=== PATIENT | female | born 1940 | race Caucasian/White ===

== ENCOUNTER 2017-02-28 15:30 | Inpatient (IN) | payer OTHER ==
[~2017-02-28] VITALS: Ht 154.9 cm; Wt 80.3 kg
[2017-02-28 17:17] LABS: Hematocrit 32.1 % (36.0-46.0); Hemoglobin 11.1 g/dL (12.2-16.2); Mean Corpuscular Hemoglobin 30.8 pg (28.0-32.0); Mean Corpuscular Hgb Conc. 34.5 g/dL (32.0-36.0); Mean Corpuscular Volume 89.2 fL (80.0-100.0); Platelet Count (auto) 379 10^3/uL (140-450); Red Cell Distribution Width 12.7 % (11.8-14.3)
[2017-02-28 17:23] LABS: Albumin 3.3 g/dL (3.4-5.0); Anion Gap 11 (5-15); Blood Urea Nitrogen 13 mg/dL (7-18); Calcium 8.2 mg/dL (8.5-10.1); Carbon Dioxide 26 mmol/L (21-32); Chloride 71 mmol/L (98-107); Glucose 144 mg/dL (74-106); Magnesium 1.8 mg/dL (1.6-2.6); Potassium 3.5 mmol/L (3.5-5.1)
[2017-02-28 17:25] LABS: Alanine Aminotransferase 36 U/L (13-56); Aspartate Aminotransferase 40 U/L (15-37); GFR African American 155 mL/min; GFR Non-African American 128 mL/min
[2017-02-28 17:30] LABS: Alkaline Phosphatase 82 U/L (45-117); Bilirubin, Total 1.1 mg/dL (0.2-1.0); Total Protein 7.1 g/dL (6.4-8.2)
[2017-02-28 17:32] LABS: Basophils % (manual) 0 (0.0-2.0); Blast Cells 0; Eosinophils % (manual) 0 (0-7); Metamyelocytes % 0; Myelocytes % 0; Promyelocytes % 0; Reactive Lymphocytes 0
[2017-02-28] MEDS ORDERED: cefTRIAXone 1GM/10ml IVPUSH 10 ML IV ONE (17:45)
[2017-02-28 18:35] LABS: Sodium 108 mmol/L (136-145)
[2017-02-28] MEDS ORDERED: SODIUM CHL 3% 500 ML IV ONE ×2 (19:30→22:45)
[2017-02-28 20:21] LABS: Band Neutrophils % (manual) 3; Lymphocytes % (manual) 10 (10.0-50.0); Monocytes % (manual) 7 (0-12)
[2017-02-28] MEDS ORDERED: MORPHINE SULF INJ 2 MG/ML SYRINGE 1ML IV PRN ×2 (22:45)
[2017-02-28] MEDS ORDERED: TEMAZEPAM 15 MG CAP PO PRN (22:45)
[2017-02-28] MEDS ORDERED: ACETAMINOPHEN 325 MG TAB PO PRN (22:45)
[2017-02-28] MEDS ORDERED: NITROGLYCERIN 0.4 MG SL TAB SL PRN (22:45)
[2017-02-28] MEDS ORDERED: ONDANSETRON HCL 4 MG/2 ML VIAL IV PRN (22:45)
[2017-02-28] MEDS ORDERED: DOCUSATE SOD 100 MG CAP PO PRN (22:45)
[2017-02-28] MEDS ORDERED: AZITHROMYCIN 500MG/ 250ML 250 ML IV ONE (23:30)
[2017-02-28] MEDS ORDERED: FUROSEMIDE 20 MG/2 ML VIAL IV ONE (23:30)
[2017-02-28] MEDS ORDERED: KETOROLAC TROMETH 30 MG/ML 1ML VIAL ONE (23:54)
[2017-03-01] MEDS: KETOROLAC TROMETH 30 MG/ML 1ML VIAL IV PRN ×2 (00:25→14:15)
[2017-03-01 01:12] LABS: Urine Bacteria FEW /hpf (None Seen); Urine Blood Negative /uL (Negative); Urine Specific Gravity 1.011 (1.001-1.035); Urine WBC 3 /hpf (0 - 5)
[2017-03-01] MEDS ORDERED: IOHEXOL 350 MG/ML 100ML IJ ONE (06:36)
[2017-03-01 07:42] LABS: Hematocrit 29.1 % (36.0-46.0); Hemoglobin 9.8 g/dL (12.2-16.2); Mean Corpuscular Hemoglobin 30.9 pg (28.0-32.0); Mean Corpuscular Hgb Conc. 33.8 g/dL (32.0-36.0); Mean Corpuscular Volume 91.4 fL (80.0-100.0); Platelet Count (auto) 322 10^3/uL (140-450); Red Blood Cells 3.18 10^6/uL (4.0-5.20); White Blood Cell 11.5 10^3/uL (4.4-10.8)
[2017-03-01 07:57] LABS: Blast Cells 0; Metamyelocytes % 0; Myelocytes % 0; Promyelocytes % 0; Reactive Lymphocytes 0
[2017-03-01 08:00] LABS: Albumin 2.9 g/dL (3.4-5.0); BUN/Creatinine Ratio 26.5; Bilirubin, Total 0.9 mg/dL (0.2-1.0); Calcium 7.4 mg/dL (8.5-10.1); Potassium 3.1 mmol/L (3.5-5.1); Total Protein 5.9 g/dL (6.4-8.2)
[2017-03-01] MEDS ORDERED: ENOXAPARIN SOD 40 MG/0.4 ML SYRINGE SC SCH (10:00)
[2017-03-01] MEDS ORDERED: FLUoxetine HCL 10 MG CAP PO SCH (10:00)
[2017-03-01] MEDS ORDERED: amLODIPine BESYLATE 5 MG TAB PO SCH (10:00)
[2017-03-01 10:06] LABS: Band Neutrophils % (manual) 3; Eosinophils % (manual) 1 (0-7); Lymphocytes % (manual) 20 (10.0-50.0); Monocytes % (manual) 3 (0-12)
[2017-03-01 10:07] LABS: Basophils % (manual) 0 (0.0-2.0)
[2017-03-01] MEDS: METOPROLOL TARTRATE 25 MG TAB PO SCH ×2 (10:22→22:14)
[2017-03-01] MEDS: FAMOTIDINE 20 MG TAB PO SCH ×2 (10:22→22:14)
[2017-03-01] MEDS: SODIUM CHLORIDE 0.9% 1,000 ML IV SCH ×2 (11:25→21:43)
[2017-03-01] MEDS ORDERED: FLORASTOR (S. BOULARDII) 250 MG CAP PO ONE (13:29)
[2017-03-01] MEDS ORDERED: metroNIDAZOLE 500 MG TAB PO ONE (13:30)
[2017-03-01] MEDS ORDERED: guaiFENesin-DM 100/10mg/5ml SYR PO PRN (13:30)
[2017-03-01] MEDS ORDERED: metroNIDAZOLE 500 MG TAB PO SCH (18:00)
[2017-03-01] MEDS: ALBUTEROL SULF 2.5 MG/0.5ML(0.5%) NEB SOLN NEB SCH ×2 (18:30→22:28)
[2017-03-01] MEDS: IPRATROPIUM BROM 0.5 MG/2.5ML INH SOL NEB SCH ×2 (18:30→22:28)
[2017-03-01 20:39] VITALS: BP 128/83
[2017-03-01] MEDS ORDERED: SODIUM CHL 3% 500 ML IV ONE (21:00)
[2017-03-01] MEDS ORDERED: PATIENTS OWN MEDICATION (simvastatin 10 MG) PO SCH (22:00)
[2017-03-01] MEDS ORDERED: ATORVASTATIN 20 MG TAB PO SCH (22:00)
[2017-03-01] MEDS ORDERED: cefTRIAXone 1GM/10ml IVPUSH 10 ML IV SCH (22:00)
[2017-03-01] MEDS ORDERED: AZITHROMYCIN 500MG/ 250ML 250 ML IV SCH (22:00)
[2017-03-01 22:49] VITALS: BP 133/93
[2017-03-02] MEDS ORDERED: FLORASTOR (S. BOULARDII) 250 MG CAP PO SCH (10:00)
[2017-03-02] MEDS ORDERED: SODIUM CHLORIDE 0.9% 1,000 ML IV SCH (11:15)
[2017-03-02] MEDS ORDERED: SODIUM CHL 3% 500 ML IV SCH (11:30)
== END 2017-03-02 22:49 | disposition short-term general hospital (02) | DRG 871 ==
LOC: ER 15:30 → EDUNIT# 15:30 → EDBD 15:30 → OVERFLOW 15:31
PROVIDERS: ADMIT Nurse Practitioner; ATTEND Internal Medicine
DX: A41.9 Sepsis, unspecified organism (principal); G92 Toxic encephalopathy; J18.1 Lobar pneumonia, unspecified organism; D64.9 Anemia, unspecified; E87.1 Hypo-osmolality and hyponatremia; E78.5 Hyperlipidemia, unspecified; K21.9 Gastro-esophageal reflux disease without esophagitis; G47.00 Insomnia, unspecified; K59.00 Constipation, unspecified; R19.7 Diarrhea, unspecified; I10 Essential (primary) hypertension; F32.9 Major depressive disorder, single episode, unspecified; F41.9 Anxiety disorder, unspecified; Z90.710 Acquired absence of both cervix and uterus; Z82.49 Family history of ischemic heart disease and other diseases of the circulatory system; Z88.0 Allergy status to penicillin; Z88.6 Allergy status to analgesic agent
CPT/HCPCS: 36415; 70450; 71046; 71275; 80053; 81001; 83605; 83735; 83880; 84295; 84443; 84484; 85007; 85027; 85379; 87040; 87400; 87493; 93005; 93306; 94640; 96361; 96365; 96375; 99291; G0378; J1885